=== PATIENT | female | born 1995 | race Caucasian/White ===

== ENCOUNTER 2016-10-30 13:04 | Emergency (ER) | payer OTHER ==
[~2016-10-30] VITALS: Ht 160 cm; Wt 61.7 kg
[2016-10-30 13:38] VITALS: BP 110/70
== END 2016-10-30 13:38 | disposition home or self-care (01) ==
LOC: ED 13:04
DX: H57.8 Other specified disorders of eye and adnexa (principal)

== ENCOUNTER 2016-12-12 11:40 | Emergency (ER) | payer OTHER ==
[~2016-12-12] VITALS: Ht 160 cm; Wt 64.0 kg
[2016-12-12 11:43] VITALS: BP 111/68
== END 2016-12-12 12:49 | disposition home or self-care (01) ==
LOC: ED 11:40
DX: Z02.79 Encounter for issue of other medical certificate (principal)

== ENCOUNTER 2017-01-23 10:09 | Emergency (ER) | payer OTHER ==
[~2017-01-23] VITALS: Ht 162.6 cm; Wt 65.3 kg
[2017-01-23 10:57] VITALS: BP 103/76
== END 2017-01-23 10:58 | disposition home or self-care (01) ==
LOC: ED 10:09
DX: O26.891 Other specified pregnancy related conditions, first trimester (principal); Z3A.00 Weeks of gestation of pregnancy not specified

== ENCOUNTER → 2017-02-07 | Outpatient (CLI) | payer OTHER | END | disposition home or self-care (01) | LOC: US 16:49 | PROC: BY49ZZZ Ultrasonography of First Trimester, Single Fetus (ICD-10-PCS; principal; 2017-02-07) | DX: Z34.91 Encounter for supervision of normal pregnancy, unspecified, first trimester (principal) ==

== ENCOUNTER → 2017-03-04 | Outpatient (CLI) | payer OTHER ==
[2017-03-04 10:59] LABS: BASOPHIL % 0.4 % (0-2); PLATELET COUNT 251 x10^3mcL (130-400); RED CELL DISTRIBUTION WIDTH 13.3 % (11.5-14.5)
[2017-03-04 11:09] LABS: GLUCOSE FASTING 87 mg/dL (70-110)
[2017-03-04 11:17] LABS: UA SPECIFIC GRAVITY 1.015 (1.005-1.035); microscopic required? YES; urine erythrocyte NEGATIVE (NEGATIVE)
== END | disposition home or self-care (01) ==
LOC: LB 10:17
DX: Z33.1 Pregnant state, incidental (principal); A64 Unspecified sexually transmitted disease; N39.0 Urinary tract infection, site not specified

== ENCOUNTER → 2017-03-07 | Outpatient (CLI) | payer OTHER | END | disposition home or self-care (01) | LOC: US 17:05 | PROC: BY49ZZZ Ultrasonography of First Trimester, Single Fetus (ICD-10-PCS; principal; 2017-03-07) | DX: O20.0 Threatened abortion (principal) ==

== ENCOUNTER 2019-10-20 17:29 | Emergency (ER) | payer OTHER ==
[~2019-10-20] VITALS: Ht 170.2 cm; Wt 80.3 kg
[2019-10-20 17:38] VITALS: BP 113/74; Ht 170.2 cm; Wt 80.3 kg
== END 2019-10-20 18:44 | disposition home or self-care (01) ==
LOC: ED 17:29
DX: L30.9 Dermatitis, unspecified (principal)